=== PATIENT | male | born 1995 | race African-American/Black ===

== ENCOUNTER 2020-09-10 02:32 | Emergency (ER) | payer MEDICAID, OTHER ==
[~2020-09-10] VITALS: Ht 175.3 cm; Wt 59.0 kg
--- NOTE | 2020-09-10 03:20 | NUR ---
Dr. Clements at bedside for MSE.
--- NOTE | 2020-09-10 03:28 | NUR ---
Xray at bedside.
--- NOTE | 2020-09-10 04:31 | NUR ---
Patient discharged to home in stable condition. Written and verbal after care instructions given. Patient verbalizes understanding of instructions. Stressed follow up or return to ER for worsening s/s. Patient out of ER with steady gait, no acute signs of distress, VSS, all belongings taken, provided with copy of xray.
[2020-09-10 04:32] VITALS: BP 118/70
== END 2020-09-10 04:32 | disposition home or self-care (01) ==
LOC: ER 02:40
DX: M79.674 Pain in right toe(s) (principal); S99.921S Unspecified injury of right foot, sequela; X58.XXXS Exposure to other specified factors, sequela
CPT/HCPCS: 73660; A4663

== ENCOUNTER 2021-04-20 14:01 | Emergency (ER) | payer MEDICAID, OTHER ==
--- NOTE | 2021-04-20 14:10 | NUR ---
During triage pt got out of the triage chair and walked out.
== END 2021-04-20 14:15 | disposition left against medical advice (07) ==
LOC: ER 14:10
DX: Z53.21 Procedure and treatment not carried out due to patient leaving prior to being seen by health care provider (principal)

== ENCOUNTER 2025-01-17 12:19 | Emergency (ER) | payer MEDICAID ==
[~2025-01-17] VITALS: Ht 175.3 cm; Wt 63.5 kg
[2025-01-17] MEDS ORDERED: KETOROLAC TROMETHAMINE 15 MG INJ ONE (13:29)
[2025-01-17 13:34] LABS: PLATELET COUNT (AUTO) 142 K/uL (152-348); RED BLOOD CELL COUNT(AUTO) 5.91 MIL/uL (4.06-5.63); RED CELL DISTRIBUTION WIDTH 13.6 % (12.1-16.2); WHITE BLOOD COUNT (AUTO) 9.0 K/uL (3.6-10.2)
[2025-01-17] MEDS: IV NORMAL SALINE 1000 ML BAG IV ONE (13:34)
[2025-01-17] MEDS: KETOROLAC TROMETHAMINE 15 MG INJ IVP ONE (13:34)
[2025-01-17 13:44] LABS: CREATININE 0.7 mg/dL (0.6-1.3); SODIUM SERUM 142 mmol/L (136-145); UREA NITROGEN, BLOOD 17 mg/dL (7-18)
[2025-01-17] MEDS ORDERED: IBUP600T51 PO (14:43)
[2025-01-17] MEDS ORDERED: BENZ-38 PO (14:43)
[2025-01-17 14:59] VITALS: BP 124/73
[2025-01-17 16:11] VITALS: BP 124/73; TEMP 98.5; O2SAT 97
== END 2025-01-17 15:10 | disposition home or self-care (01) ==
LOC: ER 12:19
DX: J06.9 Acute upper respiratory infection, unspecified (principal); F17.200 Nicotine dependence, unspecified, uncomplicated; R07.89 Other chest pain
CPT/HCPCS: 99285; 96374; 71045; 96361; 80048; 85025; 36415; 93005; J1885; J7040; A4606; A4663